=== PATIENT | female | born 1975 | race African-American/Black ===

== ENCOUNTER 2017-02-24 10:56 | Emergency (ER) | payer MEDICAID | END 2017-02-24 12:23 | disposition left against medical advice (07) | LOC: ER 12:20 | DX: S09.90XA Unspecified injury of head, initial encounter (principal); Y93.89 Activity, other specified; Y99.9 Unspecified external cause status; Y92.89 Other specified places as the place of occurrence of the external cause; Z53.21 Procedure and treatment not carried out due to patient leaving prior to being seen by health care provider ==

== ENCOUNTER 2017-03-04 01:22 | Emergency (ER) | payer MEDICAID ==
[~2017-03-04] VITALS: Ht 165.1 cm; Wt 106.0 kg
[2017-03-04] MEDS ORDERED: ASPIRIN 81MG TABLET PO STA (03:06)
[2017-03-04] MEDS ORDERED: KETOROLAC 30MG/ML VIAL IV STA (03:06)
[2017-03-04 03:15] VITALS: BP 142/87
[2017-03-04 03:20] LABS: BASOPHILS % 0.2 % (0.0-2.0); EOSINOPHILS % 0.4 % (0.0-5.0); HEMATOCRIT. 28.9 % (36.0-48.0); HEMOGLOBIN. 9.3 g/dL (12.0-16.0); MEAN CORPUSCULAR HEMOGLOBIN 27.2 pg (28.0-32.0); MEAN PLATELET VOLUME 6.7 fl (7.4-10.4); NEUTROPHILS % 74.4 % (40.0-76.0); PLATELET 351 x1000/uL (130-400); WHITE BLOOD COUNT 5.4 x1000/uL (4.5-11.0)
[2017-03-04 03:30] LABS: INR 1.1; PARTIAL THROMBOPLASTIN TIME 26.1 sec (24.0-34.0); PROTHROMBIN TIME 11.7 sec
[2017-03-04 03:36] LABS: ALANINE AMINOTRANSFERASE 11 IU/L (13-61); ALBUMIN 3.1 g/dL (3.4-5.0); ANION GAP 10; CALCIUM 8.1 mg/dL (8.5-10.1); CARBON DIOXIDE 26 mEq/L (21-32); CHLORIDE 106 mEq/L (98-107); HCG SCREEN NEGATIVE; INDEX HEMOLYSI 1 (1-3); INDEX ICTERIC 1 (1-4); INDEX LIPEMIC 1 (1-3); LIPASE 126 IU/L (73-393); TROPONIN I < 0.02 ng/mL (0.00-0.04); UREA NITROGEN BLOOD 9 mg/dL (7-21); eGFR > 60 mL/min (>60)
== END 2017-03-04 05:30 | disposition home or self-care (01) ==
LOC: ER 03:40
DX: R07.89 Other chest pain (principal); M79.89 Other specified soft tissue disorders; Z88.0 Allergy status to penicillin; Z98.890 Other specified postprocedural states
CPT/HCPCS: 36415; 71010; 80053; 83690; 84484; 84703; 85025; 85610; 85730; 93005; 99285; Z7610

== ENCOUNTER 2017-05-05 01:50 | Emergency (ER) | payer MEDICAID | END 2017-05-05 03:49 | disposition left against medical advice (07) | LOC: ER 03:40 | DX: Z53.21 Procedure and treatment not carried out due to patient leaving prior to being seen by health care provider (principal) ==